=== PATIENT | female | born 1955 ===

== ENCOUNTER 2017-10-05 12:34 | Emergency (ER) | payer MEDICAID ==
[2017-10-05 12:34] VITALS: BMI 21.5
--- NOTE | 2017-10-05 13:14 | C.PDOC ---
History Of Present Illness 62 yo female, hx of htn, depression presents with cough, body aches, sore throat , x 3 days. subjective fever. no flu shot. no sick contacts. no abd pain, ear pain, other complaints. Time Seen by Provider: 10/05/17 12:59 Chief Complaint (Nursing): Cough, Cold, Congestion Past Medical History Reviewed: Historical Data, Nursing Documentation, Vital Signs Vital Signs: Last Vital Signs Temp 97.5 F L 10/05/17 14:23 Pulse 92 H 10/05/17 14:23 Resp 16 10/05/17 14:23 BP 112/64 10/05/17 14:23 Pulse Ox 95 10/05/17 14:23 - Medical History PMH: Anxiety, Asthma, CHF, Depression, Gastritis, HTN, Hyperlipidemia, Peripheral Edema, Chronic Pain Denies: Diabetes, Hepatitis, HIV, Seizures, Sexually Transmitted Disease Surgical History: Cholecystectomy - [facility] Procedures CONTRAST ARTERIOGRAM-LEG (08/08/14) GROUP PSYCHOTHERAPY (12/17/16) OTHER SKIN & SUBQ I D (08/08/14) Family History: States: Unknown Family Hx - Social History Hx Tobacco Use: No Hx Alcohol Use: No Hx Substance Use: No - Immunization History Hx Tetanus Toxoid Vaccination: No Hx Influenza Vaccination: No Hx Pneumococcal Vaccination: No Review Of Systems Constitutional: Positive for: Fever (subjective) Respiratory: Positive for: Cough Physical Exam - Physical Exam Appears: Well, No Acute Distress Skin: Normal Color, Warm, Dry Eye(s): bilateral: Normal Inspection, PERRL, EOMI Nose: Normal Throat: Erythema, No Exudate Neck: Normal Cardiovascular: Rhythm Regular Respiratory: Normal Breath Sounds, No Rales, No Rhonchi, No Wheezing Gastrointestinal/Abdominal: Normal Exam, Soft, No Tenderness, No Guarding, No Rebound Back: Normal Inspection Extremity: Normal ROM ED Course And Treatment O2 Sat by Pulse Oximetry: 99 Medical Decision Making Medical Decision Making: xr neg as read by me. pt well appearing vitals stable. high clinical suspicion for flu will tx empirically Disposition - Disposition Disposition: HOME/ ROUTINE Disposition Time: 14:17 Condition: STABLE Additional Instructions: please follow up with your doctor. return to er with worsening symptoms or concerns. Prescriptions: Oseltamivir Phosphate [Tamiflu] 75 mg PO BID #10 capsule Instructions: Viral Syndrome (ED) Forms: [facility] ([place] Islander) - Clinical Impression Clinical Impression: Influenza-like illness
[2017-10-05 13:51] LABS: INFLUENZA A B NEGATIVE FOR FLU A/B (NEGATIVE)
[2017-10-05 14:24] VITALS: BP 112/64; PULSE 92; RESP 16; TEMP 97.5
--- NOTE | 2017-10-05 15:01 | RAD ---
HISTORY: cough COMPARISON: No prior. TECHNIQUE: Chest PA and lateral FINDINGS: LUNGS: No active pulmonary disease. PLEURA: No significant pleural effusion identified. No pneumothorax apparent. CARDIOVASCULAR: Normal. OSSEOUS STRUCTURES: No significant abnormalities. VISUALIZED UPPER ABDOMEN: Normal. OTHER FINDINGS: None. IMPRESSION: No active disease.
[2017-10-05 15:24] VITALS: O2SAT 99
== END 2017-10-05 14:30 | disposition home or self-care (01) ==
LOC: C.ER 12:34
DX: J11.1 Influenza due to unidentified influenza virus with other respiratory manifestations (principal)

== ENCOUNTER 2018-04-02 22:45 | Emergency (ER) | payer MEDICAID ==
[2018-04-02 22:45] VITALS: BMI 21.5
[2018-04-02 22:58] VITALS: RESP 16; O2SAT 97
--- NOTE | 2018-04-02 23:12 | C.PDOC ---
History Of Present Illness Patient presents to the ER with a complaint of a dull, throbbing, achy headache since yesterday, associated with mild body aches. Patient took tylenol tonight with no relief. Denies nausea, vomiting, or change in vision. Time Seen by Provider: 04/02/18 23:12 Chief Complaint (Nursing): Headache History Per: Patient History/Exam Limitations: no limitations Onset/Duration Of Symptoms: Days Current Symptoms Are (Timing): Still Present Severity: Moderate Pain Scale Rating Of: 4 Quality: Dull, Aching, Other (Throbbing) Preceeding Symptoms: None Associated Symptoms: Other (Mild body aches). denies: Blurred Vision, Nausea, Vomiting Recent travel outside of the [place]: No Past Medical History Reviewed: Historical Data, Nursing Documentation, Vital Signs Vital Signs: Last Vital Signs Temp 98.1 F 04/02/18 22:54 Pulse 73 04/02/18 22:54 Resp 16 04/02/18 22:54 BP 132/82 04/02/18 22:54 Pulse Ox 97 04/02/18 23:23 - Medical History PMH: Anxiety, Asthma, CHF, Depression, Gastritis, HTN, Hyperlipidemia, Peripheral Edema, Chronic Pain Denies: Diabetes, Hepatitis, HIV, Seizures, Sexually Transmitted Disease Surgical History: Cholecystectomy - [facility] Procedures CONTRAST ARTERIOGRAM-LEG (08/08/14) GROUP PSYCHOTHERAPY (12/17/16) OTHER SKIN & SUBQ I D (08/08/14) Family History: States: No Known Family Hx - Social History Hx Tobacco Use: No Hx Alcohol Use: No Hx Substance Use: No - Immunization History Hx Tetanus Toxoid Vaccination: No Hx Influenza Vaccination: No Hx Pneumococcal Vaccination: No Review Of Systems Constitutional: Negative for: Fever, Chills Eyes: Negative for: Vision Change Cardiovascular: Negative for: Chest Pain, Palpitations Respiratory: Negative for: Cough, Shortness of Breath Gastrointestinal: Negative for: Nausea, Vomiting Neurological: Positive for: Headache Physical Exam - Physical Exam Appears: Non-toxic Skin: Warm, Dry Head: Normacephalic Eye(s): bilateral: Normal Inspection, PERRL, EOMI Oral Mucosa: Moist Neck: Trachea Midline, Supple Chest: Symmetrical, No Tenderness Cardiovascular: Rhythm Regular Respiratory: No Rales, No Rhonchi, No Wheezing Gastrointestinal/Abdominal: Soft, No Tenderness Neurological/Psych: Oriented x3, Other (Moves all extremities, no focal deficits ) Gait: Steady ED Course And Treatment - Laboratory Results Result Diagrams: 04/02/18 23:48 04/02/18 23:48 O2 Sat by Pulse Oximetry: 97 (Room air) Pulse Ox Interpretation: Normal Progress Note: CT head and blood work ordered. Zofran administered. Patient is resting comfortably, is tolerating PO, and no longer has headache, neurologic deficit, photophobia, rash, fever, or nuchal rigidity. Patient was instructed to follow up with physician/clinic in 1-2 days. Reevaluation Time: 01:26 Reassessment Condition: Improved Medical Decision Making Medical Decision Making: Upon provider reevaluation patient is feeling better, is medically stable, and requires no further treatment in the ED at this time. Patient will be discharged home with Rx for zofran . Counseling was provided and all questions were answered regarding diagnosis and need for follow up withdr montenegro. There is agreement to discharge plan. Return if symptoms persist or worsen. Disposition Counseled Patient/Family Regarding: Studies Performed, Diagnosis, Need For Followup - Disposition Referrals: Reji Montenegro MD [Medical Doctor] - Disposition: HOME/ ROUTINE Disposition Time: 23:12 Condition: FAIR Additional Instructions: Please return if symptoms recur Prescriptions: Ondansetron ODT [Zofran ODT] 1 odt PO BID PRN #10 odt PRN Reason: Nausea/Vomiting Instructions: Headache, Adult (DC) Forms: [facility] (Sudanese) - Clinical Impression Clinical Impression: Migraine - Scribe Statement The provider has reviewed the documentation as recorded by the Scribni Patel All medical record entries made by the Scribe were at my direction and personally dictated by me. I have reviewed the chart and agree that the record accurately reflects my personal performance of the history, physical exam, medical decision making, and the department course for this patient. I have also personally directed, reviewed, and agree with the discharge instructions and disposition.
[2018-04-02 23:52] LABS: BASO % 0.6 % (0.0-2.0); EOS # 0.1 K/uL (0.0-0.7); EOS % 2.3 % (0.0-4.0); LYMPH # 2.6 K/uL (1.0-4.3); LYMPH % 45.5 % (20.0-40.0); MEAN CELL VOLUME 96.3 fL (81.0-99.0); MEAN CORPUSCULAR HEMOGLOBIN 32.1 pg (27.0-31.0); MEAN CORPUSCULAR HGB CONC 33.3 g/dL (33.0-37.0); MEAN PLATELET VOLUME 8.8 fL (7.2-11.7); MONO # 0.4 K/uL (0.0-0.8); NEUT # 2.6 K/uL (1.8-7.0); NEUT % 44.6 % (50.0-75.0); NRBC % 0.2 % (0.0-2.0); RBC 3.75 Mil/uL (3.80-5.20); RED CELL DISTRIBUTION WIDTH 14.1 % (11.5-14.5); WHITE BLOOD COUNT 5.8 K/uL (4.8-10.8)
[2018-04-03 00:02] LABS: BLOOD UREA NITROGEN 16 mg/dL (7-17); CALCIUM 9.5 mg/dl (8.6-10.4); GFR AFRICAN-AMERICAN > 60; GFR NON-AFRICAN AMERICAN > 60
[2018-04-03 01:32] VITALS: BP 101/65; PULSE 60; TEMP 98.2
--- NOTE | 2018-04-03 07:04 | CT ---
Date of service: 04/03/2018 PROCEDURE: CT HEAD WITHOUT CONTRAST. HISTORY: Headache COMPARISON: None available. TECHNIQUE: Axial computed tomography images were obtained through the head/brain without intravenous contrast. Radiation dose: Total exam DLP = 849 mGy-cm. This CT exam was performed using one or more of the following dose reduction techniques: Automated exposure control, adjustment of the mA and/or kV according to patient size, and/or use of iterative reconstruction technique. FINDINGS: HEMORRHAGE: No intracranial hemorrhage. BRAIN: No mass effect or edema. No atrophy or chronic microvascular ischemic changes. Bilateral basal ganglia calcifications. VENTRICLES: Unremarkable. No hydrocephalus. CALVARIUM: Unremarkable. PARANASAL SINUSES: Unremarkable as visualized. No significant inflammatory changes. MASTOID AIR CELLS: Unremarkable as visualized. No inflammatory changes. OTHER FINDINGS: None. IMPRESSION: No acute intracranial abnormality. If symptoms persists, consider MRI. These findings were preliminarily reported at 1:21 a.m. on 04/03/[address] Bettie Edward from [facility].
== END 2018-04-03 01:39 | disposition home or self-care (01) ==
LOC: C.ER 22:45
DX: G43.909 Migraine, unspecified, not intractable, without status migrainosus (principal); I11.0 Hypertensive heart disease with heart failure; I50.9 Heart failure, unspecified; E78.5 Hyperlipidemia, unspecified
CPT/HCPCS: 70450; 80048; 85025; 96374; 96375; 99285; J2270; J2405

== ENCOUNTER 2018-04-13 00:24 | Emergency (ER) | payer MEDICAID ==
[2018-04-13 00:25] VITALS: BMI 21.5
[2018-04-13 01:13] VITALS: O2SAT 98
--- NOTE | 2018-04-13 03:31 | C.PDOC ---
History Of Present Illness 62yo female, with history of chronic pain, comes to ER stating her pain has worsened and the medication that she usually takes is not helping. She reports that during her last visit in this ER, she was given morphine and that helped her symptoms. She is currently requesting Morphine for pain relief. She denies any new trauma, injury, weakness, numbness, and offers no additional medical complaints. Time Seen by Provider: 04/13/18 02:20 Chief Complaint (Nursing): Back Pain History Per: Patient History/Exam Limitations: no limitations Onset/Duration Of Symptoms: Persistent Current Symptoms Are (Timing): Still Present Quality Of Discomfort: "Pain" Previous Symptoms: Chronic Pain Additional History Per: Patient Past Medical History Reviewed: Historical Data, Nursing Documentation, Vital Signs Vital Signs: Last Vital Signs Temp 97.6 F 04/13/18 03:47 Pulse 81 04/13/18 03:47 Resp 20 04/13/18 03:47 BP 132/68 04/13/18 03:47 Pulse Ox 98 04/13/18 05:26 - Medical History PMH: Anxiety, Asthma, CHF, Depression, Gastritis, HTN, Hyperlipidemia, Peripheral Edema, Chronic Pain Denies: Diabetes, Hepatitis, HIV, Seizures, Sexually Transmitted Disease Surgical History: Cholecystectomy (1996) [facility] Procedures CONTRAST ARTERIOGRAM-LEG (08/08/14) GROUP PSYCHOTHERAPY (12/17/16) OTHER SKIN & SUBQ I D (08/08/14) Family History: States: Unknown Family Hx - Social History Hx Tobacco Use: No Hx Alcohol Use: No Hx Substance Use: No - Immunization History Hx Tetanus Toxoid Vaccination: No Hx Influenza Vaccination: Yes Hx Pneumococcal Vaccination: Yes Review Of Systems Constitutional: Positive for: Other (worsening chronic pain) Cardiovascular: Negative for: Chest Pain Respiratory: Negative for: Shortness of Breath Gastrointestinal: Negative for: Abdominal Pain Neurological: Negative for: Weakness, Numbness Physical Exam - Physical Exam Appears: Non-toxic, No Acute Distress Skin: Normal Color, Warm, Dry Head: Atraumatic, Normacephalic Eye(s): bilateral: Normal Inspection Neck: Supple Chest: Symmetrical Cardiovascular: Rhythm Regular Respiratory: Normal Breath Sounds, No Rales Gastrointestinal/Abdominal: Normal Exam Back: Normal Inspection Extremity: Normal ROM, No Tenderness, No Calf Tenderness, No Deformity, No Swelling, Other (hyperpigmentation noted to skin on bilateral lower extremity with minimal swelling b/l) Neurological/Psych: Oriented x3 Gait: Steady ED Course And Treatment O2 Sat by Pulse Oximetry: 98 (RA) Pulse Ox Interpretation: Normal Progress Note: Patient given toradol 30mg IM. On reeval, patient reports improvement in pain. Patient to be discharged home, instructed to follow up with PMD/ pain management Disposition Counseled Patient/Family Regarding: Diagnosis, Need For Followup - Disposition Referrals: [facility] [Outside] Disposition: HOME/ ROUTINE Disposition Time: 03:28 Condition: STABLE Additional Instructions: PLEASE FOLLOW UP IN CLINIC FOR PAIN MANAGEMENT TAKE MEDS PRESCRIBED RETURN TO ER IF WORSE Prescriptions: traMADol [Ultram] 50 mg PO TID #14 tab Instructions: Chronic Pain (DC) Forms: [facility] (Macedonian) - Clinical Impression Clinical Impression: Chronic pain - PA / ORE MIXER / Resident Statement MD/DO has reviewed & agrees with the documentation as recorded. - Scribe Statement The provider has reviewed the documentation as recorded by the Rodrigo Liu Provider Attestation: All medical record entries made by the Rodrigo were at my direction and personally dictated by me. I have reviewed the chart and agree that the record accurately reflects my personal performance of the history, physical exam, medical decision making, and the department course for this patient. I have also personally directed, reviewed, and agree with the discharge instructions and disposition.
[2018-04-13 03:48] VITALS: BP 132/68; PULSE 81; RESP 20; TEMP 97.6
== END 2018-04-13 03:48 | disposition home or self-care (01) ==
LOC: C.ER 00:24
DX: G89.29 Other chronic pain (principal)
CPT/HCPCS: 96372; 99284; J1885